=== PATIENT | male | born 1945 | race Caucasian/White ===

== ENCOUNTER 2017-08-13 10:13 | Emergency (ER) | payer MEDICARE, MEDICAID ==
[~2017-08-13] VITALS: Ht 200.7 cm; Wt 95.4 kg
[2017-08-13 10:22] VITALS: BP 129/65
[2017-08-13] MEDS: HYDROcodone/APAP 5/325 MG 1 TAB TAB PO ONE (11:39)
[2017-08-13 12:27] VITALS: BP 145/82
== END 2017-08-13 12:26 | disposition home or self-care (01) ==
LOC: MED 10:13
DX: E11.9 Type 2 diabetes mellitus without complications (principal); M79.672 Pain in left foot; Z76.0 Encounter for issue of repeat prescription
CPT/HCPCS: 99283

== ENCOUNTER 2017-09-10 08:15 | Emergency (ER) | payer MEDICARE, MEDICAID ==
[~2017-09-10] VITALS: Ht 198.1 cm; Wt 100.7 kg
[2017-09-10 08:24] VITALS: BP 102/70
[2017-09-10] MEDS: AZITHROMYCIN 250 MG TAB PO ONE (08:58)
[2017-09-10] MEDS: predniSONE 20 MG TAB PO ONE (08:59)
[2017-09-10] MEDS: ALBUTEROL 0.083% 2.5 MG/3 ML NEBU INH ONE (09:13)
[2017-09-10] MEDS: IPRATROPIUM 0.02% 0.5 MG/2.5 ML NEBU INH ONE (09:13)
[2017-09-10 09:25] LABS: BASOPHILS # (AUTO) 0.1 K/uL (0.00-0.22); BASOPHILS % (AUTO) 0.6 % (0.0-2.0); EOSINOPHILS # (AUTO) 0.9 K/uL (0-0.4); EOSINOPHILS % (AUTO) 8.9 % (0.0-4.0); HEMATOCRIT 43.4 % (36-52); HEMOGLOBIN 14.4 g/dL (12.0-18.0); LYMPHOCYTES # (AUTO) 1.4 K/uL (2.0-11.5); MEAN CORPUSCULAR HEMOGLOBIN 28 pg (27-31); MEAN CORPUSCULAR HGB CONC 33 g/dL (33-37); MEAN CORPUSCULAR VOLUME 85.1 fL (80-94); MONOCYTES # (AUTO) 0.8 K/uL (0.8-1.0); MONOCYTES % (AUTO) 7.9 % (1.7-9.3); NEUTROPHILS # (AUTO) 6.5 K/uL (1.8-7.7); NEUTROPHILS % (AUTO) 67.6 % (42.2-75.2); PLATELET COUNT (AUTO) 167 K/uL (140-450); RED BLOOD CELL COUNT(AUTO) 5.11 MIL/uL (4.20-6.10); WHITE BLOOD COUNT (AUTO) 9.6 K/uL (4.8-10.8)
[2017-09-10 09:32] LABS: ANION GAP 12.9 (8-16); CARBON DIOXIDE 26.7 mmol/L (21-32); CHLORIDE 102 mmol/L (98-107); GLUCOSE 122 mg/dL (74-106); POTASSIUM 3.6 mmol/L (3.5-5.1); SODIUM SERUM 138 mmol/L (136-145); UREA NITROGEN, BLOOD 12 mg/dL (7-18)
[2017-09-10 09:38] LABS: ALBUMIN 3.5 g/dL (3.4-5.0); ASPARTATE AMINOTRANSFERASE 26 U/L (15-37); TOTAL BILIRUBIN 0.7 mg/dL (0.0-1.0)
[2017-09-10 11:01] VITALS: BP 119/70
== END 2017-09-10 11:01 | disposition home or self-care (01) ==
LOC: MED 08:15
DX: J44.1 Chronic obstructive pulmonary disease with (acute) exacerbation (principal); J20.9 Acute bronchitis, unspecified; E11.9 Type 2 diabetes mellitus without complications; F17.210 Nicotine dependence, cigarettes, uncomplicated
CPT/HCPCS: 36415; 71045; 80053; 82948; 84484; 85025; 94640; 99285; J7512; J7613; J7644; Q0092